=== PATIENT | female | born 1945 | race Caucasian/White ===

== ENCOUNTER 2019-04-15 16:40 | Emergency (ER) | payer OTHER ==
[~2019-04-15] VITALS: Ht 167.6 cm; Wt 83.5 kg
[2019-04-15] MEDS ORDERED: HYDRALAZINE HC100 MG (16:44)
[2019-04-15] MEDS ORDERED: CANDESARTAN CILE8 MG (16:44)
[2019-04-15] MEDS ORDERED: LIPITOR40 MG (16:45)
[2019-04-15] MEDS ORDERED: NEURONTIN300 MG (16:45)
[2019-04-15] MEDS ORDERED: OMEPRAZOLE20 MG (16:45)
[2019-04-15] MEDS ORDERED: VITAMIN D1000 UNIT (16:45)
== END 2019-04-15 22:59 | disposition home or self-care (01) ==
LOC: ER 16:40
DX: S01.121A Laceration with foreign body of right eyelid and periocular area, initial encounter (principal); S19.89XA Other specified injuries of other specified part of neck, initial encounter; R51 Headache; E88.89 Other specified metabolic disorders; W26.8XXA Contact with other sharp object(s), not elsewhere classified, initial encounter; Y93.89 Activity, other specified; Y92.59 Other trade areas as the place of occurrence of the external cause; Y99.8 Other external cause status